=== PATIENT | male | born 1955 | race Caucasian/White ===

== ENCOUNTER 2021-12-04 08:10 | Outpatient (RCR) | payer MEDICARE, SELFPAY | END 2021-12-12 15:11 | disposition home or self-care (01) | LOC: HO.WCC 08:10 | PROVIDERS: PCP Hospitalist; Visit Provider Physician Assistant | DX: T81.31XA Disruption of external operation (surgical) wound, not elsewhere classified, initial encounter (principal); K50.113 Crohn's disease of large intestine with fistula; E11.628 Type 2 diabetes mellitus with other skin complications; L30.9 Dermatitis, unspecified; R23.9 Unspecified skin changes; Z93.2 Ileostomy status; Z79.01 Long term (current) use of anticoagulants; Z79.82 Long term (current) use of aspirin; Z79.899 Other long term (current) drug therapy; Z79.4 Long term (current) use of insulin; Z79.84 Long term (current) use of oral hypoglycemic drugs | CPT/HCPCS: 99205 ==